=== PATIENT | female | born 1965 | race Two or more races ===

== ENCOUNTER 2019-07-08 15:44 | Emergency (ER) | payer OTHER ==
[~2019-07-08] VITALS: Ht 160 cm; Wt 54.4 kg
[2019-07-08] MEDS ORDERED: KETOROLAC TROMETHAMINE 10 MG TABLET PO STA (15:47)
[2019-07-08 15:49] VITALS: BP 139/86
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
[2019-07-08] MEDS ORDERED: ORPHENADRINE CITRATE 60 MG/2 ML VIAL. IM ONE (16:00)
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
[2019-07-08] MEDS ORDERED: IBUP-1027 PO (17:09)
[2019-07-08] MEDS ORDERED: ORPH100T PO (17:09)
--- NOTE | 2019-07-09 06:29 | EKG ---
[facility] [address] [place] [address] Test Date: 2019-07-08 Test Time: 16:12:22 Pat Name: SVITLANA NARANJO Department: Room: Gender: F Leguillon Debeader: : 1965 Requested By: ANTOINE LI Order Number: [id number] Reading MD: Measurements Intervals [place] Rate: 70 P: 46 CO: 164 QRS: 73 QRSD: 82 T: 55 QT: 356 QTc: 387 Interpretive Statements SINUS RHYTHM NO SPECIFIC ECG ABNORMALITIES RI6.01 No previous ECG available for comparison
== END 2019-07-08 17:19 | disposition home or self-care (01) ==
LOC: ER 15:44
DX: R07.89 Other chest pain (principal); R51 Headache; M54.5 Low back pain; M25.512 Pain in left shoulder; Z88.5 Allergy status to narcotic agent; Z88.6 Allergy status to analgesic agent; V89.2XXA Person injured in unspecified motor-vehicle accident, traffic, initial encounter; Y93.89 Activity, other specified; Y92.89 Other specified places as the place of occurrence of the external cause; Y99.8 Other external cause status
CPT/HCPCS: 70450; 71046; 72125; 72128; 72131; 73030; 93005; 96372; 99284; J2360